=== PATIENT | male | born 1990 | race Caucasian/White ===

== ENCOUNTER 2017-02-14 20:59 | Emergency (ER) | payer SELFPAY ==
[2017-02-14 21:20] VITALS: BP 129/65; PULSE 77; RESP 18; TEMP 98.1; O2SAT 98
--- NOTE | 2017-02-14 21:28 | ED PDOC ---
Arrival/HPI - General Historian: Patient - History of Present Illness Time/Duration: 24 hours Symptom Onset: Sudden Symptom Course: Unchanged Quality: Aching Severity Level: 5 - General Chief Complaint: Lower Extremity Problem/Injury Time Seen by Provider: 02/14/17 21:25 - History of Present Illness Narrative History of Present Illness (Text): 26 M with no PMH presents to ED for complaint of L ankle pain and swelling. Patient stated that yesterday evening he was playing basketball when he jumped then landed on someone's foot and subsequently rolled his ankle. Patient said that he was able to play and walk on it for the rest of the game. He reported icing it when he went home. This morning, he woke up with increased pain and swelling. Patient stated that the pain was worse this morning. He stated pain is 6/10 in severity when bearing weight. He described it as an aching pain on lateral left ankle without radiation. Walking, movement, and putting weight exacerbates the pain. (Jacoby Cornejo) Past Medical History - Provider Review Nursing Documentation Reviewed: Yes - Travel History Have you recently traveled outside [place] w/in the past 3 mons?: No - Past History Past History: No Previous - Psychiatric Hx Substance Use: Yes - Anesthesia Hx Anesthesia: No Family/Social History - Physician Review Nursing Documentation Reviewed: Yes Family/Social History: No Known Family HX Smoking Status: Never Smoked Hx Alcohol Use: Yes Frequency of alcohol use: Socially Hx Substance Use: Yes Substance used: Marijuana Allergies/Home Meds Allergies/Adverse Reactions: Allergies No Known Allergies Allergy (Verified 12/13/15 14:16) Review of Systems - Review of Systems Constitutional: absent: Fatigue, Weight Change, Fevers, Night Sweats Eyes: absent: Vision Changes, Photophobia ENT: absent: Sore Throat Respiratory: absent: SOB, Wheezing Cardiovascular: absent: Chest Pain, Palpitations, Edema, Calf Pain Gastrointestinal: absent: Abdominal Pain, Diarrhea, Nausea, Vomiting Genitourinary Male: absent: Dysuria Musculoskeletal: Joint Swelling, Myalgias Skin: Other (ecchymosis over right lateral malleolus). absent: Rash, Pruritis Neurological: absent: Headache, Dizziness, Focal Weakness Endocrine: absent: Diaphoresis, Polyuria, Polydipsia Hemo/Lymphatic: absent: Adenopathy, Easy Bleeding, Easy Bruising Psychiatric: absent: Anxiety, Depression, Suicidal Ideation Physical Exam Vital Signs Reviewed: Yes Temperature: Afebrile Blood Pressure: Normal Pulse: Regular Respiratory Rate: Normal Appearance: Positive for: Well-Appearing, Comfortable Pain Distress: None Mental Status: Positive for: Alert and Oriented X 3 - Systems Exam Head: Present: Atraumatic, Normocephalic Pupils: Present: PERRL Extroacular Muscles: Present: EOMI Conjunctiva: Present: Normal Ears: Present: Normal Mouth: Present: Moist Mucous Membranes Pharnyx: Present: Normal Nose (External): Present: Atraumatic Nose (Internal): Present: Normal Inspection Neck: Present: Normal Range of Motion Respiratory/Chest: Present: Clear to Auscultation, Good Air Exchange. No: Respiratory Distress, Accessory Muscle Use Cardiovascular: Present: Regular Rate and Rhythm, Normal S1, S2. No: Murmurs Abdomen: Present: Normal Bowel Sounds. No: Tenderness, Distention, Peritoneal Signs, Rebound, Guarding Back: Present: Paraspinal Tenderness Upper Extremity: Present: Normal Inspection, Normal ROM, NORMAL PULSES, Neurovascularly Intact, Capillary Refill < 2s, Deformity. No: Cyanosis, Edema Lower Extremity: Present: Edema, NORMAL PULSES, Tenderness, Swelling (L ankle), Neurovascularly Intact, Capillary Refill < 2 s, Other (ecchymosis over right lateral malleolus) Neurological: Present: GCS=15, CN II-XII Intact, Speech Normal Skin: Present: Warm, Dry Psychiatric: Present: Alert, Oriented x 3, Normal Insight, Normal Concentration , Normal Affect, Normal Mood Vital Signs Temp Pulse Resp BP Pulse Ox 02/14/17 21:09 98.1 F 77 18 129/65 98 Medical Decision Making - RAD Interpretation Managing Broker: ED Physician ED Course and Treatment: L ankle XR was performed and it was negative. Patient denied paraenteral pain medication. (Jacoby Cornejo) Seen and examined with resident. 26 y/o M p/w ankle injury. Lateral ecchymosis on exam. XR negative. (Luiz Josue) - RAD Interpretation Narrative RAD Interpretations (Text): L ankle XR: Negative (Jacoby Cornejo) Radiology Orders: 02/14/17 21:33 ANKLE LEFT 3 VIEWS ROUTINE [RAD] Stat Disposition/Present on Arrival - Present on Arrival Any Indicators Present on Arrival: No History of DVT/PE: No History of Uncontrolled Diabetes: No Urinary Catheter: No History of Decub. Ulcer: No History Surgical Site Infection Following: None - Disposition Have Diagnosis and Disposition been Completed?: Yes Disposition Time: 21:56 Patient Plan: Discharge - Disposition Diagnosis: Ankle sprain Disposition: HOME/ ROUTINE Patient Problems: Current Active Problems Problem Status Onset Ankle sprain Acute Condition: STABLE Discharge Instructions (ExitCare): Ankle Sprain (ED) Additional Instructions: Patient stable for discharge home. Patient may take OTC ibuprofen or motrin for pain as needed along with Rest, Ice, Compression, and elevation. Patient is to follow up with PMD and orthopedics within 2-3 days. Patient is to use crutches and not bear weight on ankle until follow up with Ortho. Please return to ED if symptoms persist or condition worsens. All instruction stated above were discussed in detail with patient. He verbalized understanding and agreement. Referrals: Catalino Pompa DO [Staff Provider] - Follow up with primary
--- NOTE | 2017-02-15 08:36 | RAD ---
PROCEDURE: Left Ankle Radiographs. HISTORY: injury/pain COMPARISON: None FINDINGS: BONES: Normal. No fracture. JOINTS: Normal. No osteoarthritis. Ankle mortise maintained. Talar dome intact SOFT TISSUES: Normal. OTHER FINDINGS: None. IMPRESSION: Normal left ankle radiographs.
== END 2017-02-14 22:12 | disposition home or self-care (01) ==
LOC: ED 20:59
DX: S93.402A Sprain of unspecified ligament of left ankle, initial encounter (principal); X50.0XXA Overexertion from strenuous movement or load, initial encounter; Y93.67 Activity, basketball; Y92.39 Other specified sports and athletic area as the place of occurrence of the external cause